=== PATIENT | female | born 1980 | race Two or more races ===

== ENCOUNTER 2018-03-31 17:02 | Emergency (ER) | payer SELFPAY ==
[~2018-03-31] VITALS: Ht 152.4 cm; Wt 68.5 kg
[2018-03-31 17:10] VITALS: BP 120/70
[2018-03-31 17:38] LABS: RAPID INFLUENZA A Negative (Negative); RAPID INFLUENZA B Negative (Negative)
== END 2018-03-31 18:23 | disposition home or self-care (01) ==
LOC: ED 18:15
DX: H65.01 Acute serous otitis media, right ear (principal); J02.9 Acute pharyngitis, unspecified; J01.90 Acute sinusitis, unspecified
CPT/HCPCS: 71046; 87400; 99285